=== PATIENT | male | born 1985 | race African-American/Black ===

== ENCOUNTER 2016-12-08 00:55 | Emergency (ER) ==
[2016-12-08] MEDS ORDERED: M.V.I.-12 10 ML, FOLIC ACID 1 MG, MAGNESIUM SULFATE 1 GM, THIAMINE 100 MG in NS 1,000 ML IV ONE (01:40)
[2016-12-08 01:48] LABS: MANUAL DIFF NEEDED? NO
[2016-12-08 01:56] LABS: BASO% 0.6 % (0.0-0.8); EOS# 0.09 X1000 (0.0-0.7); EOS% 1.2 % (0.0-10.0); HEMATOCRIT 44.3 % (42.0-52.0); IMM GRAN# 0.01 X1000 (0.0-0.04); IMM GRAN% 0.1 % (0.0-0.5); LYMPH# 3.91 X1000 (1.2-3.4); LYMPH% 53.9 % (20.5-51.1); MCH 31.2 PG (27-31); MCHC 36.1 g/dL (33-37); MCV 86.4 FL (81-99); MONO# 0.74 X1000 (0.11-0.59); MONO% 10.2 % (1.7-9.3); MPV 9.1 FL (7.4-10.4); PLT 263 X1000 (130-400); RBC 5.13 XMIL (4.7-6.1)
[2016-12-08 01:57] LABS: UR AMPHETAMINES QUAL PRESUMPTIVE POSITIVE (NONE DETECT); UR BARBITUATES QUAL NONE DETECTED (NONE DETECT); UR BENZODIAZEPIN QUAL NONE DETECTED (NONE DETECT); UR CANNABINOIDS QUAL PRESUMPTIVE POSITIVE (NONE DETECT); UR COCAINE QUAL PRESUMPTIVE POSITIVE (NONE DETECT); UR MDMA QUAL NONE DETECTED (NONE DETECT); UR METHADONE QUAL NONE DETECTED (NONE DETECT); UR METHAMPHETAMINE QUAL PRESUMPTIVE POSITIVE (NONE DETECT); UR OPIATES QUAL NONE DETECTED (NONE DETECT); UR OXYCODONE QUAL NONE DETECTED (NONE DETECT); UR PCP QUAL NONE DETECTED (NONE DETECT); UR TCA QUAL NONE DETECTED (NONE DETECT)
[2016-12-08 02:06] LABS: AGAP 17; ALBUMIN 5.2 g/dL (3.5-5.0); ALKALINE PHOSPHATASE 74 U/L (32-122); AMYLASE 66 U/L (20-200); BUN 9 mg/dL (8-22); CALCIUM 10.3 mg/dL (8.8-10.2); CHLORIDE 94 mmol/L (98-107); COSMO 270; GOT 33 U/L (10-34); GPT 18 U/L (10-44); POTASSIUM 3.7 mmol/L (3.5-5.1); SODIUM 135 mmol/L (136-145); TCO2 23 mmol/L (25-35); TOTAL PROTEIN 8.4 g/dL (6.3-8.3)
[2016-12-08 02:21] LABS: URINE EPITHELIAL CELLS <10 /HPF (<10); URINE RBC <10 /HPF (<10); URINE WBC <10 /HPF (<10)
[2016-12-08 02:22] LABS: BILIRUBIN URINE NEGATIVE (NEGATIVE); CLARITY CLEAR (CLEAR); COLOR YELLOW; GLUCOSE URINE NEGATIVE (NEGATIVE); URINE CULTURE PL NEEDED? YES; URINE SOURCE CLEAN CATCH
[2016-12-08 02:34] LABS: ACETAMINOPHEN < 1.2 ug/mL (10-30)
--- NOTE | 2016-12-08 02:44 | PROVIDER DOCUMENTATION ---
[id number] Abuse/Overdose - General Source: patient - History of Present Illness-Drug/Alcohol This episode of drinking or use began:: this evening Severity: reports: moderate, severe Situational problems related to:: reports: N/A Psychiatric Complaints: reports: altered mental status Associated Symptoms: reports: chest pain - Substance Abuse Substance Use: reports: cocaine <Miesha Smart - Last Filed: 12/08/16 02:54> <Hardy Monteiro - Last Filed: 12/08/16 03:31> - General Chief Complaint: Overdose Stated Complaint: HARD TO BREATHE, DRY, DIZZINESS Time Seen by Provider: 12/08/16 02:39 Allergies/Adverse Reactions: Allergies Allergy/AdvReac Type Severity Reaction Status Date / Time No Known Allergies Allergy Verified 07/10/16 09:19 Home Medications: Home Medication List Medication Instructions Recorded Confirmed Last Taken Type Ketorolac [Toradol] 10 mg PO Q8HR #20 tablet 09/08/16 Unknown Rx Sulfamethoxazole/Trimethoprim 1 each PO BID #20 tablet 09/08/16 Unknown Rx [Bactrim Ds Tablet] Tamsulosin [Flomax] 0.4 mg PO DAILY #20 capsule 09/08/16 Unknown Rx Sulfamethoxazole/Trimethoprim 1 each PO BID #14 tablet 11/16/16 Unknown Rx [Bactrim Ds Tablet] - History of Present Illness-Drug/Alcohol Nature of Presenting Problem: 31 Y/O M presents to ED with drug overdose. Pt states that he took a big clear pill that was given to him by friends, states muscle aches, Chest pain, stomach pains and cramps, thought hands were crystallizing, and dehydrated. (Miesha Smart) Review of Systems - Adult - REVIEW OF SYSTEMS - ADULT Constitutional: denies: chills, fever Eyes: reports: no symptoms reported Ears, Nose, Mouth & Throat: reports: no symptoms reported Cardiovascular: reports: chest pain Respiratory: reports: no symptoms reported Gastrointestinal: reports: abdominal pain. denies: diarrhea, nausea, vomiting Genitourinary: reports: no symptoms reported Musculoskeletal: reports: no symptoms reported Integumentary: reports: no symptoms reported Neurological: reports: no symptoms reported Psychiatric: reports: other (overdose) Endocrine: reports: increased thirst Hematologic/Lymphatic: reports: no symptoms reported Allergic/Immunologic: reports: no symptoms reported All Other Systems: Reviewed and Negative <BerryMiesha - Last Filed: 12/08/16 02:54> Past History - Adult - PAST MEDICAL HISTORY-ADULT Review of Records: reports: Old Records Reviewed, Nursing Assessment Review, Medications Reviewed, Social history reviewed & non-contributory. Major Childhood Illnesses: reports: denies history Cardiovascular: reports: denies history Respiratory: reports: denies history Gastrointestinal: reports: denies history Obstetrical/Gynecological: reports: denies history Genitourinary: reports: denies history Musculoskeletal: reports: denies history Neurological: reports: denies history Endocrine/Immune: reports: denies history Other Conditions: reports: denies history - PRIOR SURGERIES/PROCEDURES Surgical/Procedure History: reports: reviewed, not pertinent - PRIOR HOSPITALIZATIONS Prior Hospitalizations: reports: none - IMMUNIZATION STATUS Childhood Immunizations: See Nurse Assessment Flu Vaccine: See Nurse Assessment - FAMILY HISTORY Family History: reviewed, not pertinent - SOCIAL HISTORY Smoking: cigarettes, less than 1 pack/day Living Situation: family <Berry,Alexa - Last Filed: 12/08/16 02:54> Physical Exam-General - PHYSICAL EXAM-ADULT Initial Vital Signs Reviewed: Yes - CONSTITUTIONAL General Appearance: appears well, alert, no apparent distress - EYES Eyes: PERRL/EOMI, pink conjunctivae, fundi clear, no AV nicking - HEAD, EARS, NOSE, MOUTH & THROAT HENMT: normocephalic/atraumatic, moist mucous membranes, normal ENT inspection, TMs normal, pharynx normal - NECK Neck: non-tender, full range of motion, supple, normal inspection - RESPIRATORY Respiratory: chest non-tender, lungs clear, normal breath sounds - CARDIOVASCULAR Cardiovascular: normal peripheral pulses, regular rate, rhythm - GASTROINTESTINAL (ABDOMEN) Abdominal Exam: normal bowel sounds, non tender, soft - LYMPHATIC Lymphatic: no adenopathy - MUSCULOSKELETAL Back Exam: normal inspection, no CVA tenderness, no vertebral tenderness Extremity: normal range of motion, non-tender - SKIN Integumentary: normal color, normal turgor, warm/dry - NEUROLOGIC Neurologic: benzene still utility operator II-XII nml as tested - PSYCHIATRIC Psych/Mental Status: normal mood/affect, normal thought content, normal thought process, oriented x 3 <BerryMiesha - Last Filed: 12/08/16 02:54> Progress - EKG 1 Time of EKG reading by physician:: :17 EKG Read and Signed by:: Hardy Monteiro EKG Interpretation (*Must complete 3 of following elements*): Abnormal Rate: 112 Rhythm: Sinus Tachycardia [place]: right Comments: Abnormal ECG <BerryMiesha - Last Filed: 12/08/16 02:54> <Hardy Monteiro - Last Filed: 12/08/16 03:31> - PLAN OF CARE/RESULTS Progress/Plan/Lab Results: Laboratory Tests 12/08/16 12/08/16 12/08/16 01:20 01:30 01:30 WBC RBC Hgb Hct MCV MCH MCHC RDW Std Deviation Plt Count MPV Immature Gran % (Auto) Neut % (Auto) Lymph % (Auto) [place] % (Auto) Eos % (Auto) Baso % (Auto) Immature Gran # (Auto) Neut # (Auto) Lymph # (Auto) [place] # (Auto) Eos # (Auto) Baso # (Auto) Sodium 135 L Potassium 3.7 Chloride 94 L Carbon Dioxide 23 L Anion Gap 17 BUN 9 Creatinine 1.2 Estimated GFR/1.73 m2 > 60 BUN/Creatinine Ratio 8 Glucose 119 H Calculated Osmolality 270 Calcium 10.3 H Magnesium 2.0 Total Bilirubin 0.60 AST 33 ALT 18 Alkaline Phosphatase 74 Total Protein 8.4 H Albumin 5.2 H Globulin 3.0 Albumin/Globulin Ratio 2.0 Amylase 66 Lipase Urine Source Urine Color Urine Clarity Urine Turbidity Urine pH Ur Specific [place] Urine Protein Ur Glucose (Stick) Urine Ketones Ur Ketones (Stick) Urine Blood Urine Nitrite Urine Bilirubin Urine Urobilinogen Urobilinogen Dipstick Urine Leukocytes Urine WBC (Auto) Urine RBC (Auto) U Epithel Cells (Auto) Urine Bacteria (Auto) Urine Microscopic RBC Urine WBC Urine Microscopic WBC Ur Epithelial Cells Urine Bacteria Urine Glucose Salicylates < 3.00 L Urine Opiates Screen NONE DETECTED Ur Oxycodone Screen NONE DETECTED Urine Methadone Screen NONE DETECTED Acetaminophen < 1.2 L Ur Barbituates Screen NONE DETECTED Ur Tricyclics Screen NONE DETECTED Ur Phencyclidine Scrn NONE DETECTED Ur Amphetamines Screen PRESUMPTIVE POSITIVE A U Methamphetamines Scrn PRESUMPTIVE POSITIVE A Urine MDMA Screen NONE DETECTED U Benzodiazepines Scrn NONE DETECTED Urine Cocaine Screen PRESUMPTIVE POSITIVE A U Cannabinoids Screen PRESUMPTIVE POSITIVE A Plasma/Serum Ethyl Alc 12/08/16 12/08/16 12/08/16 01:30 01:30 01:30 WBC 7.26 RBC 5.13 Hgb 16.0 Hct 44.3 MCV 86.4 MCH 31.2 H MCHC 36.1 RDW Std Deviation 12.8 Plt Count 263 MPV 9.1 Immature Gran % (Auto) 0.1 Neut % (Auto) 34.0 L Lymph % (Auto) 53.9 H [place] % (Auto) 10.2 H Eos % (Auto) 1.2 Baso % (Auto) 0.6 Immature Gran # (Auto) 0.01 Neut # (Auto) 2.47 Lymph # (Auto) 3.91 H [place] # (Auto) 0.74 H Eos # (Auto) 0.09 Baso # (Auto) 0.04 Sodium Potassium Chloride Carbon Dioxide Anion Gap BUN Creatinine Estimated GFR/1.73 m2 BUN/Creatinine Ratio Glucose Calculated Osmolality Calcium Magnesium Total Bilirubin AST ALT Alkaline Phosphatase Total Protein Albumin Globulin Albumin/Globulin Ratio Amylase Lipase 29 Urine Source Urine Color Urine Clarity Urine Turbidity Urine pH Ur Specific [place] Urine Protein Ur Glucose (Stick) Urine Ketones Ur Ketones (Stick) Urine Blood Urine Nitrite Urine Bilirubin Urine Urobilinogen Urobilinogen Dipstick Urine Leukocytes Urine WBC (Auto) Urine RBC (Auto) U Epithel Cells (Auto) Urine Bacteria (Auto) Urine Microscopic RBC Urine WBC Urine Microscopic WBC Ur Epithelial Cells Urine Bacteria Urine Glucose Salicylates Urine Opiates Screen Ur Oxycodone Screen Urine Methadone Screen Acetaminophen Ur Barbituates Screen Ur Tricyclics Screen Ur Phencyclidine Scrn Ur Amphetamines Screen U Methamphetamines Scrn Urine MDMA Screen U Benzodiazepines Scrn Urine Cocaine Screen U Cannabinoids Screen Plasma/Serum Ethyl Alc 0 12/08/16 01:30 WBC RBC Hgb Hct MCV MCH MCHC RDW Std Deviation Plt Count MPV Immature Gran % (Auto) Neut % (Auto) Lymph % (Auto) [place] % (Auto) Eos % (Auto) Baso % (Auto) Immature Gran # (Auto) Neut # (Auto) Lymph # (Auto) [place] # (Auto) Eos # (Auto) Baso # (Auto) Sodium Potassium Chloride Carbon Dioxide Anion Gap BUN Creatinine Estimated GFR/1.73 m2 BUN/Creatinine Ratio Glucose Calculated Osmolality Calcium Magnesium Total Bilirubin AST ALT Alkaline Phosphatase Total Protein Albumin Globulin Albumin/Globulin Ratio Amylase Lipase Urine Source Cancelled Urine Color YELLOW Urine Clarity CLEAR Urine Turbidity Cancelled Urine pH 6.5 Ur Specific [place] 1.015 Urine Protein TRACE A Ur Glucose (Stick) Cancelled Urine Ketones 2+(Moderate) A Ur Ketones (Stick) Cancelled Urine Blood NEGATIVE Urine Nitrite NEGATIVE Urine Bilirubin NEGATIVE Urine Urobilinogen NORMAL Urobilinogen Dipstick Cancelled Urine Leukocytes Cancelled Urine WBC (Auto) Cancelled Urine RBC (Auto) Cancelled U Epithel Cells (Auto) Cancelled Urine Bacteria (Auto) Cancelled Urine Microscopic RBC <10 Urine WBC TRACE A Urine Microscopic WBC <10 Ur Epithelial Cells <10 Urine Bacteria 3+ Urine Glucose NEGATIVE Salicylates Urine Opiates Screen Ur Oxycodone Screen Urine Methadone Screen Acetaminophen Ur Barbituates Screen Ur Tricyclics Screen Ur Phencyclidine Scrn Ur Amphetamines Screen U Methamphetamines Scrn Urine MDMA Screen U Benzodiazepines Scrn Urine Cocaine Screen U Cannabinoids Screen Plasma/Serum Ethyl Alc Orders Category Date Time Status Saline Loc DIRECTED Care 12/08/16 01:38 Active ALCOHOL BLOOD Stat Lab 12/08/16 01:30 Completed AMYLASE [CHEM] Stat Lab 12/08/16 01:30 Completed CBC WITH ELECTRONIC DIFF [HEME] Stat Lab 12/08/16 01:30 Completed COMPREHENSIVE METABOLIC PANEL [CHEM] Stat Lab 12/08/16 01:30 Completed LIPASE [CHEM] Stat Lab 12/08/16 01:30 Completed MAGNESIUM [CHEM] Stat Lab 12/08/16 01:30 Completed SALICYLATES [TDM] Stat Lab 12/08/16 01:20 Completed Tylenol [ACETAMINOPHEN] [TDM] Stat Lab 12/08/16 01:20 Completed UA NIMS W/REFLEX CULT PL [URINALYSIS] Stat Lab 12/08/16 01:30 Completed UDS [URINE DRUG SCREEN PL] Stat Lab 12/08/16 01:30 Completed URINE CULTURE [RM] Routine Lab 12/08/16 02:23 Ordered 0.9% Sodium Chloride Inj [Ns] 1,000 ml Med 12/08/16 01:40 Discontinued Mvi [M.v.i.-12] 10 ml Folic Acid 1 mg Magnesium Sulfate 1 gm Thiamine 100 mg IV 999 mls/hr Pulse Oximetry Stat Oth 12/08/16 01:38 Active EKG [EKG] Stat Ther 12/08/16 01:39 Ordered Vital Signs - 24 hr 12/08/16 01:05 Temperature 98.6 F Pulse Rate 143 H Respiratory 20 Rate Blood Pressure 151/089 O2 Sat by Pulse 100 Oximetry (Miesha Smart) Departure - Departure Time of Disposition Order: 02:42 Certified Medical Emergency: Emergent <Miesha Smart - Last Filed: 12/08/16 02:54> - Departure Time of Disposition Order: 03:30 Certified Medical Emergency: Emergent <Hardy Monteiro - Last Filed: 12/08/16 03:31> - Departure DIAGNOSIS: Polydrug abuse Disposition: HOME 01 Condition: Stable Additional Instructions: ED Follow Up Instructions: You have been treated by a care provider in the Emergency Department. These instructions are being provided to you so you can have an understanding of how to care for yourself upon discharge. Upon discharge from the Emergency Department, you are responsible for making arrangements for follow-up care by a physician of your choice. Take all prescribed medications as directed. Return to the Emergency Department immediately for any new or worsening symptoms. You may call the Physician Referral phone number at [phone] to obtain a list of Physicians who are taking new patients. Referrals: None,PCP [Primary Care Provider] - Attestation - Scribe Verification/Attestation Scribe:: Miesha Smart Acting as Scribe for:: Hardy Monteiro Scribe documention review:: This chart was documented by a scribe and accurately reflects the service the provider performed and the decisions made by the provider. <Miesha Smart - Last Filed: 12/08/16 02:54> Physician Attestation
[2016-12-08 02:53] LABS: BLOOD URINE NEGATIVE (NEGATIVE); LEUKOCYTES URINE TRACE (NEGATIVE); NITRITE URINE NEGATIVE (NEGATIVE); PH URINE 6.5; PROTEIN URINE TRACE mg/dL (NEGATIVE); SP GRAVITY URINE 1.015; UROBILINOGEN URINE NORMAL
[2016-12-08 03:39] VITALS: BP 131/077
--- NOTE | 2016-12-08 05:19 | EKG Report ---
Test Performed on : 12/08/2016 01:17:44 AM Test Reason : TACY/DRUG Blood Pressure : / mmHG Vent. Rate : 112 BPM Atrial Rate : 112 BPM P-R Int : 136 ms QRS Dur : 094 ms QT Int : 340 ms P-R-T Axes : 068 092 004 degrees QTc Int : 464 ms Sinus tachycardia. Rightward axis Nonspecific ST and T wave abnormality Abnormal ECG When compared with ECG of 16-NOV-2013 22:02, (Unconfirmed) ST now depressed in Inferior leads ST now depressed in Lateral leads T wave inversion now evident in Anterior leads Unconfirmed Result
== END 2016-12-08 03:39 | disposition home or self-care (01) ==
LOC: P.ED 00:55
DX: F19.10 Other psychoactive substance abuse, uncomplicated (principal); R94.31 Abnormal electrocardiogram [ECG] [EKG]; R41.82 Altered mental status, unspecified; R07.9 Chest pain, unspecified; R42 Dizziness and giddiness; M79.1 Myalgia; R10.9 Unspecified abdominal pain; R63.1 Polydipsia; F17.210 Nicotine dependence, cigarettes, uncomplicated
CPT/HCPCS: 80053; 80305; 81001; 82150; 83690; 83735; 85025; 87088; 93005; G0480; J3411; J3475; J7030; 80320; 80324; 80329